=== PATIENT | male | born 2000 | race Caucasian/White ===

== ENCOUNTER 2024-02-09 12:41 | Emergency (ER) | payer BC, SELFPAY ==
--- NOTE | ~2024-02-09 | XR_ITS ---
XR toe 1st LT min 2V Ordering provider: Bushra Liao APRN History: . injury playing soccer 1 week ago 1st left toe pain . Comparison: None. FINDINGS: BONES: Fracture at the base of the distal phalanx of the left big toe which is extending to the joint space. JOINT SPACES: Normal. SOFT TISSUES: Normal. IMPRESSION: Fracture at the base of the distal phalanx of the left big toe. Reviewed, dictated and finalized at location A.
[2024-02-09 12:58] VITALS: BP 118/78; PULSE 66; RESP 16; TEMP 36.8; O2SAT 99
--- NOTE | 2024-02-09 13:13 | ED_ITS ---
HPI - Extremity Injury (Lower) General Chief Complaint: Extremity Injury, Lower Stated Complaint: toe injury Source: patient Mode of arrival: ambulatory Limitations: no limitations History of Present Illness HPI Narrative: 23-year-old male presented for complaint of left great toe pain after injury 1 week ago. He states while playing soccer the toe was stepped on by another player. He has continue to play soccer throughout the week, wrapping it, taking Motrin and applying ice. Denies deformity, numbness, tingling or weakness. Rates pain 09/25. Related Data Home Medications Medication Instructions Recorded Confirmed No Home Medications 02/09/24 02/09/24 Allergies Allergy/AdvReac Type Severity Reaction Status Date / Time No Known Allergies Allergy Verified 02/09/24 12:59 Review of Systems Review of Systems: CONSTITUTIONAL: Denies body aches, fever, chills CARDIOVASCULAR: Denies chest pain, palpitations, or edema. RESPIRATORY: Denies cough or dyspnea. SKIN: Denies rash, itching, or wounds. MUSCULOSKELETAL: reports left great toe pain NEUROLOGIC: Denies headache, numbness, tingling, or weakness. All systems reviewed & are unremarkable except as noted in HPI and below PMFSH Comments At time of signature, I have reviewed and agree with nursing past medical, surgical, social and family history unless otherwise noted. Please see nursing chart for further information. There is no relevant family history pertinent to the presenting complaint Exam Narrative: GENERAL: Well-appearing CHEST: Speaks in full sentences. No respiratory distress. HEART: Regular rate and rhythm. Normal and equal peripheral pulses. EXTREMITIES: Left great toe with mild swelling and erythema to the DIP; TTP. Left foot has normal strength and sensation. Limited range of motion of toe due to pain with movement. No open wounds, or obvious deformity; alignment normal, pulse palpable and equal bilaterally, skin warm, dry, pink. Capillary refill less than 3 seconds. SKIN: Warm, dry NEURO: Alert and oriented x3. PSYCH: Normal mood and affect Course Course Emergency Course: Patient is aware of diagnosis, understands and agrees to treatment plan. Anticipatory guidance given. Patient agrees to follow-up as directed and is aware of reasons to seek care at the emergency department. Portions of this record may have been created with voice recognition software Level of Care: Express Care Visit Vital Signs Vital signs: Vital Signs Temperature 98.2 F 02/09/24 12:58 Pulse Rate 66 02/09/24 12:58 Respiratory Rate 16 02/09/24 12:58 Blood Pressure 118/78 02/09/24 12:58 Pulse Oximetry 99 02/09/24 12:58 Oxygen Delivery Room Air 02/09/24 12:58 Temperature 98.2 F 02/09/24 12:58 Pulse Rate 66 02/09/24 12:58 Respiratory Rate 16 02/09/24 12:58 Blood Pressure 118/78 02/09/24 12:58 Pulse Oximetry 99 02/09/24 12:58 Oxygen Delivery Room Air 02/09/24 12:58 Reviewed MDM - Extremity Injury (Lower) MDM Narrative Medical decision making narrative: Discussed physical exam findings and xray c/w left 1st toe fx.. Advised supp ortive measures and signs/symptoms to go to the ER. Pt is appropriate for outpt treatment and f/u. Differential Diagnosis Differential diagnosis: Likely fracture of toe Imaging Data Radiologist's impression: Patient: Gagan Oden : 2000 MR#: [id number] Age: 23 Acct:[id number] Loc: [id number] ADM Date: 02/09/24Attending Dr: Ordering Physician: Bushra Liao APRN Date of Service: 02/09/24 Procedure(s): XR toe 1st LT min 2V Accession Number(s): [id number] cc: Bushra Liao APRN; Proehl,Ari D~ XR toe 1st LT min 2V Ordering provider: Bushra Liao APRN History: . injury playing soccer 1 week ago 1st left toe pain . Comparison: None. FINDINGS: BONES: Fracture at the base of the distal phalanx of the left big toe which is extending to the joint space. JOINT SPACES: Normal. SOFT TISSUES: Normal. IMPRESSION: Fracture at the base of the distal phalanx of the left big toe. Discharge Plan Discharge Clinical Impression: Fracture of toe of left foot Patient Disposition: Home, Self-Care Condition: Stable Instructions: Antibiotic Form, Toe Fracture (ED) Additional Instructions: Rest, avoid running, jumping, sports, and/or excessive walking until cleared by specialist. ice and elevate the left foot Motrin 800mg every 8 hours, as needed, for pain (take with food). Tylenol 1000mg every 8 hours. Wear the post op shoe until cleared by specialist Go to the ER immediately for increased pain, tingling/numbness, swelling, redness etc Follow up with Orthopedic Surgery in 1-2 days for further evaluation - please call today for an appointment. Prescriptions: No Action No Home Medications Follow-up/Referrals: Proehl,Ari Mcadams [Other] Darin Prasad MD [Physician] -
== END 2024-02-09 13:31 | disposition home or self-care (01) ==
PROVIDERS: Emergency Provider Nurse Practitioner Family
DX: S92.422A Displaced fracture of distal phalanx of left great toe, initial encounter for closed fracture (principal); W50.0XXA Accidental hit or strike by another person, initial encounter; Y93.66 Activity, soccer
CPT/HCPCS: 73660; 99204; G0463